=== PATIENT | male | born 1995 | race African-American/Black ===

== ENCOUNTER 2018-06-19 23:31 | Emergency (ER) | payer SELFPAY | END 2018-06-20 01:28 | disposition home or self-care (01) | LOC: ERS 23:31 | DX: R59.0 Localized enlarged lymph nodes (principal) | CPT/HCPCS: 87081; 87430; 99283 ==

== ENCOUNTER 2019-09-03 07:07 | Emergency (ER) | payer SELFPAY | END 2019-09-03 07:53 | disposition home or self-care (01) | LOC: ERS 07:07 | DX: K03.2 Erosion of teeth (principal) | CPT/HCPCS: 99282 ==

== ENCOUNTER 2020-08-22 07:56 | Emergency (ER) | payer OTHER, SELFPAY ==
[2020-08-23 12:21] LABS: SARS-CoV-2 MS2 Positive; SARS-CoV-2 N Gene Negative; SARS-CoV-2 S Gene Negative; SARS-CoV-2 by NAA Not Detected (NotDetected); SARS-CoV-2 orf1ab Negative
== END 2020-08-22 09:00 | disposition home or self-care (01) ==
LOC: ERS 07:56
DX: R10.9 Unspecified abdominal pain (principal); Z20.828 Contact with and (suspected) exposure to other viral communicable diseases
CPT/HCPCS: 87635; 99284; U0003

== ENCOUNTER 2021-11-04 18:23 | Emergency (ER) | payer SELFPAY | END 2021-11-04 20:18 | disposition home or self-care (01) | LOC: ERS 18:23 | DX: L72.3 Sebaceous cyst (principal) | CPT/HCPCS: 99282 ==

== ENCOUNTER 2021-11-30 20:04 | Emergency (ER) | payer SELFPAY ==
[2021-11-30] MEDS ORDERED: Ketorolac Tromethamine 30 MG/ML VIAL ONE (21:25)
[2021-12-01 13:27] LABS: SARS-CoV-2 PCR by NAA Not Detected (NotDetected)
== END 2021-11-30 21:51 | disposition home or self-care (01) ==
LOC: ERS 20:04
DX: B34.9 Viral infection, unspecified (principal); M25.562 Pain in left knee; Z20.822 Contact with and (suspected) exposure to COVID-19
CPT/HCPCS: 96372; 99284; J1885; U0003; U0005

== ENCOUNTER 2022-01-26 13:11 | Emergency (ER) | payer SELFPAY ==
[2022-01-26 14:06] LABS: #Eosinphils 0.2 thou/uL (0.0-0.7); #Lymphocytes 2.1 thou/uL (1.20-3.40); #Monocytes 0.5 thou/uL (0.11-0.59); #Neutrophils 5.8 thou/uL (1.40-6.50); %Basophils 0.6 % (0.0-1.0); %Lymphocytes 24.8 % (21.0-51.0); %Monocytes 5.3 % (0.0-10.0); %Neutrophils 67.4 % (42.0-75.0); Hemoglobin 15.5 g/dL (14.0-18.0); Mean Corpuscular HGB CONC 33.3 g/dL (32.0-36.0); Mean Corpuscular Volume 89.9 fL (78.0-98.0); Mean Platelet Volume 5.8 fL (7.4-10.4); Platelet Count 371 thou/uL (130-400); RBC Distribution Width 12.7 % (11.5-14.5); Red Blood Cell (RBC) Count 5.16 mill/uL (4.70-6.10); White Blood Cell (WBC) Count 8.6 thou/uL (4.8-10.8)
[2022-01-26 14:28] LABS: ALT (SGPT) 34 U/L (8-55); AST (SGOT) 31 U/L (5-34); Albumin 4.1 g/dL (3.5-5.0); Alkaline Phosphatase 66 U/L (40-110); Anion Gap 13 mmol/L (10-20); BUN (Urea Nitrogen) 11 mg/dL (8.9-20.6); Bilirubin, Total 0.4 mg/dL (0.2-1.2); Calc. Creatinine Clearance 0 mL/min (70-130); Calcium 9.7 mg/dL (7.8-10.44); Carbon Dioxide 25 mmol/L (22-29); Chloride 103 mmol/L (98-107); Globulin 3.5 g/dL (2.4-3.5); Glucose 94 mg/dL (70-105); Lipase 116 U/L (8-78); Potassium 3.7 mmol/L (3.5-5.1); Protein, Total 7.6 g/dL (6.0-8.3); Sodium 137 mmol/L (136-145)
[2022-01-26] MEDS ORDERED: Ondansetron ODT 4 MG TAB ONE (16:08)
[2022-01-26] MEDS ORDERED: Dicyclomine 20 MG/2 ML VIAL ONE (16:28)
== END 2022-01-26 16:54 | disposition home or self-care (01) ==
LOC: ERS 13:11
DX: R19.7 Diarrhea, unspecified (principal); R11.2 Nausea with vomiting, unspecified; R03.0 Elevated blood-pressure reading, without diagnosis of hypertension
CPT/HCPCS: 36415; 80053; 83690; 85025; 96372; 99284; J0500; Q0162

== ENCOUNTER 2022-08-19 02:25 | Emergency (ER) | payer SELFPAY ==
[2022-08-19] MEDS ORDERED: Lidocaine 1% PF 5 ML VIAL ONE (02:58)
== END 2022-08-19 03:33 | disposition home or self-care (01) ==
LOC: ERS 02:25
DX: K08.89 Other specified disorders of teeth and supporting structures (principal)
CPT/HCPCS: 64400

== ENCOUNTER 2023-06-07 20:32 | Emergency (ER) | payer SELFPAY | END 2023-06-07 21:04 | disposition home or self-care (01) | LOC: ERS 20:32 | DX: H60.02 Abscess of left external ear (principal) | CPT/HCPCS: 10060; 87070; 87205 ==

== ENCOUNTER 2024-01-24 08:44 | Emergency (ER) | payer MEDICAID, SELFPAY ==
[2024-01-24] MEDS ORDERED: Proparacaine 0.5% Opth 15 ML BOT ONE (09:46)
[2024-01-24] MEDS ORDERED: Fluorescein Opthalmic Strip ONE (09:46)
== END 2024-01-24 10:34 | disposition home or self-care (01) ==
LOC: ERS 08:44
DX: H00.011 Hordeolum externum right upper eyelid (principal); X58.XXXA Exposure to other specified factors, initial encounter; Y93.89 Activity, other specified; Y92.69 Other specified industrial and construction area as the place of occurrence of the external cause; Z55.6 Problems related to health literacy
CPT/HCPCS: 99283

== ENCOUNTER 2025-01-09 18:12 | Emergency (ER) | payer SELFPAY ==
[2025-01-09] MEDS ORDERED: Ondansetron ODT 4 MG TAB ONE (19:54)
== END 2025-01-09 20:03 | disposition home or self-care (01) ==
LOC: ERS 18:12
DX: B34.9 Viral infection, unspecified (principal)
CPT/HCPCS: 71045; 87081; 87428; 87430; Q0162